=== PATIENT | female | born 1955 | race Asian ===

== ENCOUNTER 2017-09-26 10:49 | Emergency (ER) | payer SELFPAY ==
[~2017-09-26] VITALS: Ht 167.6 cm; Wt 63.6 kg
[2017-09-26 10:54] VITALS: BP 151/92
[2017-09-26] MEDS ORDERED: METF500T4 PO (11:03)
[2017-09-26] MEDS ORDERED: LOSA50TA37 PO (11:03)
[2017-09-26] MEDS ORDERED: ATOR40TA28 PO (11:03)
[2017-09-26] MEDS ORDERED: DAPA5TAB PO (11:03)
[2017-09-26] MEDS ORDERED: ASPI81 PO (11:03)
[2017-09-26 11:13] LABS: GLUCOSE,POINT OF CARE 92 MG/DL (70-110)
== END 2017-09-26 11:49 | disposition left against medical advice (07) ==
LOC: EMS 10:49
DX: R51 Headache (principal)
CPT/HCPCS: 82962; 99282